=== PATIENT | male | born 1960 | race Hispanic/Latino ===

== ENCOUNTER 2017-08-05 22:48 | Emergency (ER) | payer BC ==
[2017-08-06 00:45] LABS: Basophils % (Auto) 0.3 % (0.0-1.8); Eosinophils % (Auto) 1.8 % (0.0-4.3); Hematocrit 45.7 % (35.5-45.6); Mean Corpuscular HGB Conc 33 % (32-34); Mean Corpuscular Hemoglobin 31 pg (28-32); Mean Corpuscular Volume 96 fl (84-94); Platelet Count 236 K/mm3 (140-440); Red Blood Count 4.77 M/mm3 (3.65-5.03); Red Cell Distribution Width 13.2 % (13.2-15.2)
[2017-08-06 00:57] LABS: INR 1.14 (0.87-1.13)
[2017-08-06 00:58] LABS: Partial Thromboplastin Time 32.3 Sec. (24.2-36.6)
--- NOTE | 2017-08-06 01:01 | Cat Scan Report ---
FINAL REPORT PROCEDURE: CT HEAD/BRAIN WO CON TECHNIQUE: Computerized tomography of the head was performed without contrast material. HISTORY: dizziness and nnjumbness with bilextremity numbness COMPARISON: No prior studies are available for comparison. FINDINGS: Skull and scalp: Normal. Paranasal sinuses: Mild opacification of the ethmoid sinuses.. Ventricles and subarachnoid spaces: Normal. Cerebrum: No evidence of hemorrhage, acute infarction or mass . Cerebellum and brainstem: No evidence of hemorrhage, acute infarction or mass. Vasculature: Normal. Comments: None. IMPRESSION: There is no evidence of an acute intracranial process.
[2017-08-06 01:08] LABS: Anion Gap 19 mmol/L; BUN/Creatinine Ratio 11.11; Blood Urea Nitrogen 10 mg/dL (9-20); Calcium 10.3 mg/dL (8.4-10.2); Carbon Dioxide 24 mmol/L (22-30); Chloride 99.9 mmol/L (98-107); Glucose 109 mg/dL (75-100); Potassium 3.9 mmol/L (3.6-5.0); Sodium 139 mmol/L (137-145)
--- NOTE | 2017-08-06 07:04 | Emergency Department Report ---
ED Palpitations HPI - General Chief Complaint: Dizziness Stated Complaint: HEART RACING Time Seen by Provider: 08/06/17 06:27 Source: patient Mode of arrival: Ambulatory Limitations: No Limitations - History of Present Illness Initial Comments: 56-year-old male with a past medical history of hypertension presents to the hospital complaints of palpitations. Sternal onset while resting and watching TV at 7 PM. Symptoms were constant until approximately 2 AM. Positive associated lightheadedness, head pressure, tingling to hands and feet and mild nausea. Denies chest pain, shortness of breath or diaphoresis. Patient has had similar episodes in the past but this has lasted the longest. Reports he was here before for similar symptoms and was diagnosed with colitis. Medical record reviewed in 2013 patient did have a diagnosis of acute colitis. Denies any cardiac workup recently or holtor monitor testing. - Related Data Home Medications Medication Instructions Recorded Confirmed Last Taken Cetirizine HCl [Zyrtec] 10 mg PO DAILY 02/25/14 02/25/14 02/24/14 12:00 Citalopram [celeXA] 20 mg PO QDAY 02/25/14 02/25/14 02/24/14 12:00 Lisinopril [Zestril TAB] 02/25/14 02/25/14 02/24/14 12:00 Previous Rx's Medication Instructions Recorded Last Taken Type Ciprofloxacin HCl [Ciprofloxacin 500 mg PO Q12H #20 tab 02/25/14 Unknown Rx TAB] Promethazine [Phenergan] 25 mg PO Q6H PRN #20 tab 02/25/14 Unknown Rx Promethazine [Phenergan] 25 mg [place] Q6HR PRN #10 supp.rect 02/25/14 Unknown Rx metroNIDAZOLE [Flagyl] 500 mg PO Q8HR #30 tablet 02/25/14 Unknown Rx Allergies Allergy/AdvReac Type Severity Reaction Status Date / Time No Known Allergies Allergy Unverified 02/25/14 02:23 ED Review of Systems ROS: Stated complaint: HEART RACING Other details as noted in HPI Comment: All other systems reviewed and negative Other: Constitutional: No fevers chills Eyes: No eye pain visual changes ENT: No ear pain or throat pain Neck: Denies pain Respiratory: Denies cough wheezing shortness of breath Cardiovascular: Denies chest pain GI: Denies abdominal pain, vomiting, diarrhea : Denies dysuria Musculoskeletal: Denies back pain Skin: Denies rash, lesions, erythema Neurologic: Denies headache, numbness, weakness Psychiatric: Denies suicidal ideation, hallucinations ED Past Medical Hx - Past Medical History Previous Medical History?: Yes Hx Hypertension: Yes - Surgical History Past Surgical History?: Yes - Social History Smoking Status: Current Every Day Smoker Substance Use Type: None - Medications Home Medications: Home Medications Medication Instructions Recorded Confirmed Last Taken Type Cetirizine HCl [Zyrtec] 10 mg PO DAILY 02/25/14 02/25/14 02/24/14 12:00 History Ciprofloxacin HCl [Ciprofloxacin 500 mg PO Q12H #20 tab 02/25/14 Unknown Rx TAB] Citalopram [celeXA] 20 mg PO QDAY 02/25/14 02/25/14 02/24/14 12:00 History Lisinopril [Zestril TAB] 02/25/14 02/25/14 02/24/14 12:00 History Promethazine [Phenergan] 25 mg PO Q6H PRN #20 tab 02/25/14 Unknown Rx Promethazine [Phenergan] 25 mg [place] Q6HR PRN #10 supp.rect 02/25/14 Unknown Rx metroNIDAZOLE [Flagyl] 500 mg PO Q8HR #30 tablet 02/25/14 Unknown Rx ED Physical Exam - General Limitations: No Limitations - Other Other exam information: General: No limitations, patient is alert in no acute distress Head exam: Atraumatic, normocephalic Eyes exam: Normal appearance, pupils equal reactive to light, extraocular movements intact ENT: Moist mucous membrane, normal oropharynx Neck exam: Normal inspection, full range of motion, no meningismus nontender Respiratory exam: Clear to auscultation bilateral, no wheezes, rales, crackles Cardiovascular: Normal rate and rhythm, normal heart sounds Abdomen: Soft, nondistended, and nontender, with normal bowel sounds, no rebound, or guarding Extremity: Full range of motion normal inspection no deformity, no calf tenderness or edema Back: Normal Inspection, full range of motion, no tenderness Neurologic: Alert, oriented x3, cranial nerves intact, no motor or sensory deficit Psychiatric: normal affect, normal mood Skin: Warm, dry, intact ED Course Vital Signs 08/05/17 08/06/17 08/06/17 23:20 03:15 06:16 Temperature 98.9 F 98.1 F 98.4 F Pulse Rate 131 H 75 87 Respiratory 24 18 20 Rate Blood Pressure 145/103 Blood Pressure 114/74 135/80 [Left] O2 Sat by Pulse 100 99 99 Oximetry - Reevaluation(s) Reevaluation #1: 08/06/17 07:03 Patient is asymptomatic during my evaluation states that his symptoms. Symptoms resolved spontaneously. No medications provided - Consultations Consultation #1: 08/06/17 06:[address] Flores component assembler teenage program director. He agrees to outpatient follow-up is appropriate ED Medical Decision Making - Lab Data Result diagrams: 08/06/17 00:33 08/06/17 00:33 Lab Results 08/06/17 08/06/17 08/06/17 Range/Units 00:33 00:33 00:33 WBC 12.0 H (4.5-11.0) K/mm3 RBC 4.77 (3.65-5.03) M/mm3 Hgb 15.0 (11.8-15.2) gm/dl Hct 45.7 H (35.5-45.6) % MCV 96 H (84-94) fl MCH 31 (28-32) pg MCHC 33 (32-34) % RDW 13.2 (13.2-15.2) % Plt Count 236 (140-440) K/mm3 Lymph % (Auto) 11.8 L (13.4-35.0) % [place] % (Auto) 6.6 (0.0-7.3) % Eos % (Auto) 1.8 (0.0-4.3) % Baso % (Auto) 0.3 (0.0-1.8) % Lymph # 1.4 (1.2-5.4) K/mm3 [place] # 0.8 (0.0-0.8) K/mm3 Eos # 0.2 (0.0-0.4) K/mm3 Baso # 0.0 (0.0-0.1) K/mm3 Seg Neutrophils % 79.5 H (40.0-70.0) % Seg Neutrophils # 9.6 H (1.8-7.7) K/mm3 PT 14.5 (12.2-14.9) Sec. INR 1.14 H (0.87-1.13) APTT 32.3 (24.2-36.6) Sec. Thrombin Time (15.1-19.6) Sec. Sodium 139 (137-145) mmol/L Potassium 3.9 (3.6-5.0) mmol/L Chloride 99.9 (98-107) mmol/L Carbon Dioxide 24 (22-30) mmol/L Anion Gap 19 mmol/L BUN 10 (9-20) mg/dL Creatinine 0.9 (0.8-1.5) mg/dL Estimated GFR > 60 ml/min BUN/Creatinine Ratio 11.11 % Glucose 109 H (75-100) mg/dL POC Glucose (70-105) Calcium 10.3 H (8.4-10.2) mg/dL Troponin T < 0.010 (0.00-0.029) ng/mL 08/06/17 08/06/17 Range/Units 00:33 03:22 WBC (4.5-11.0) K/mm3 RBC (3.65-5.03) M/mm3 Hgb (11.8-15.2) gm/dl Hct (35.5-45.6) % MCV (84-94) fl MCH (28-32) pg MCHC (32-34) % RDW (13.2-15.2) % Plt Count (140-440) K/mm3 Lymph % (Auto) (13.4-35.0) % [place] % (Auto) (0.0-7.3) % Eos % (Auto) (0.0-4.3) % Baso % (Auto) (0.0-1.8) % Lymph # (1.2-5.4) K/mm3 [place] # (0.0-0.8) K/mm3 Eos # (0.0-0.4) K/mm3 Baso # (0.0-0.1) K/mm3 Seg Neutrophils % (40.0-70.0) % Seg Neutrophils # (1.8-7.7) K/mm3 PT (12.2-14.9) Sec. INR (0.87-1.13) APTT (24.2-36.6) Sec. Thrombin Time 14.4 L (15.1-19.6) Sec. Sodium (137-145) mmol/L Potassium (3.6-5.0) mmol/L Chloride (98-107) mmol/L Carbon Dioxide (22-30) mmol/L Anion Gap mmol/L BUN (9-20) mg/dL Creatinine (0.8-1.5) mg/dL Estimated GFR ml/min BUN/Creatinine Ratio % Glucose (75-100) mg/dL POC Glucose 108 H (70-105) Calcium (8.4-10.2) mg/dL Troponin T (0.00-0.029) ng/mL - EKG Data -: EKG Interpreted by Me (sinus tach at 109 incomplete right bundle branch block no ST\JOEL) - Radiology Data Radiology results: report reviewed (CT head: No acute finding), image reviewed ( chest x-ray PA and lateral: No acute finding) - Medical Decision Making Plan to discharge patient home with outpatient cardiology follow-up. Patient is asymptomatic. Only rhythm identified as mild sinus tach. - Differential Diagnosis arrhythmia, SVT, A. fib, anxiety Critical Care Time: No Critical care attestation.: If time is entered above; I have spent that time in minutes in the direct care of this critically ill patient, excluding procedure time. ED Disposition Clinical Impression: Palpitation Disposition: DC-01 TO HOME OR SELFCARE Is pt being admited?: No Does the pt Need Aspirin: No Condition: Stable Instructions: Palpitations (ED) Additional Instructions: Follow up with a teenage program director for further treatment and management of your intermittent palpitations. Please return if symptoms worsen. Referrals: YVROSE FLORES MD [Staff Physician] - 2-3 Days (teenage program director) Time of Disposition: 07:07
--- NOTE | 2017-08-06 07:59 | XRay Report ---
ROUTINE CHEST, TWO VIEWS: HISTORY: Shortness of breath. The trachea, heart, mediastinal contour, lung arce and bony thorax are unremarkable. IMPRESSION: No acute cardiopulmonary process.
[2017-08-06 08:52] VITALS: BP 117/73
== END 2017-08-06 08:52 | disposition home or self-care (01) ==
LOC: ED 22:48
DX: R00.2 Palpitations (principal); R11.0 Nausea; R42 Dizziness and giddiness; I10 Essential (primary) hypertension; F17.210 Nicotine dependence, cigarettes, uncomplicated
CPT/HCPCS: 36415; 70450; 71020; 80048; 82962; 84484; 85025; 85610; 85670; 85730; 93005; 93010; 99285

== ENCOUNTER 2017-08-06 12:16 | Emergency (ER) | payer BC ==
--- NOTE | 2017-08-06 12:32 | Emergency Department Report ---
Chief Complaint: Arrhythmia/Palpitations Stated Complaint: HEART RACING Time Seen by Provider: 08/06/17 12:28 - HPI History of Present Illness: PT states he was discharged from the ED this morning. PT states he was feeling better but the palpitations returned - ROS Review of Systems: + palpitations - Exam Physical Exam: PT looks well, non toxic. PT has no acute resp distress MSE screening note: Focused history and physical exam performed. Due to findings the following was ordered: ekg, lab ED Disposition for MSE Condition: Stable
[2017-08-06 12:40] VITALS: BP 128/85
== END 2017-08-06 15:10 | disposition left against medical advice (07) ==
LOC: ED 12:16
DX: R00.2 Palpitations (principal); Z53.21 Procedure and treatment not carried out due to patient leaving prior to being seen by health care provider
CPT/HCPCS: 93005; 93010